=== PATIENT | female | born 1945 ===

== ENCOUNTER 2016-10-07 08:32 | Emergency (ER) | payer MEDICARE ==
--- NOTE | 2016-10-07 09:35 | C.PDOC ---
History Of Present Illness 71 year old female presents to the ED with complaints of abdominal pain for the past 4 days. Patient denies nausea, vomiting, diarrhea, and any other complaints at this time. Time Seen by Provider: 10/07/16 09:09 Chief Complaint (Nursing): Abdominal Pain History Per: Patient History/Exam Limitations: no limitations Onset/Duration Of Symptoms: Days Current Symptoms Are (Timing): Still Present Quality Of Discomfort: "Pain" Associated Symptoms: denies: Fever, Chills, Nausea, Vomiting, Diarrhea Past Medical History Reviewed: Historical Data, Nursing Documentation, Vital Signs Vital Signs: Last Vital Signs Temp 98.5 F 10/07/16 13:19 Pulse 84 10/07/16 13:19 Resp 18 10/07/16 13:19 BP 123/83 10/07/16 13:19 Pulse Ox 100 10/07/16 13:19 - Medical History PMH: Diverticulitis, Gastritis, HTN, Osteoporosis Surgical History: Appendectomy, Cholecystectomy Family History: States: Unknown Family Hx - Social History Hx Tobacco Use: No Hx Alcohol Use: No Hx Substance Use: No - Immunization History Hx Tetanus Toxoid Vaccination: Yes Hx Influenza Vaccination: Yes Hx Pneumococcal Vaccination: No Review Of Systems Constitutional: Negative for: Fever, Chills Respiratory: Negative for: Cough Gastrointestinal: Positive for: Abdominal Pain. Negative for: Nausea, Vomiting , Diarrhea Musculoskeletal: Negative for: Back Pain Physical Exam - Physical Exam Appears: Non-toxic, No Acute Distress Skin: Warm, Dry Eye(s): bilateral: PERRL, EOMI Ear(s): Bilateral: Normal Oral Mucosa: Moist Neck: Supple Cardiovascular: Rhythm Regular, No Murmur Respiratory: No Accessory Muscle Use, No Rales, No Rhonchi, No Stridor, No Wheezing Gastrointestinal/Abdominal: Soft, Tenderness (epigastric and suprapubic tenderness), No Distention, No Guarding, No Rebound Extremity: Normal ROM, No Tenderness Neurological/Psych: Oriented x3 ED Course And Treatment - Laboratory Results Result Diagrams: 10/07/16 10:02 10/07/16 10:02 O2 Sat by Pulse Oximetry: 99 Medical Decision Making Medical Decision Making: r/o colitis, appendicitis - labs imaging pending pt reassesed. abd soft. no ttp. ct neg for acute pathology. labs imaging unremarkable. pt states feels well for d/c. Disposition - Disposition Referrals: Jeb Jacobo MD [Staff Provider] - Disposition: HOME/ ROUTINE Disposition Time: 13:05 Condition: STABLE Additional Instructions: please follow up with your doctor. return to er with worsening symptoms or concenrs. Instructions: Acute Abdominal Pain (ED) - Clinical Impression Clinical Impression: Abdominal pain - Scribe Statement The provider has reviewed the documentation as recorded by the Scribe Bella Nixon All medical record entries made by the Scribe were at my direction and personally dictated by me. I have reviewed the chart and agree that the record accurately reflects my personal performance of the history, physical exam, medical decision making, and the department course for this patient. I have also personally directed, reviewed, and agree with the discharge instructions and disposition.
[2016-10-07 10:06] LABS: BASO # 0.1 K/uL (0.0-0.2); BASO % 1.2 % (0.0-2.0); EOS # 0.1 K/uL (0.0-0.7); EOS % 1.3 % (0.0-4.0); HEMATOCRIT 42.2 % (34.0-47.0); LYMPH # 1.5 K/uL (1.0-4.3); LYMPH % 21.2 % (20.0-40.0); MEAN CELL VOLUME 85.1 fL (81.0-99.0); MEAN CORPUSCULAR HGB CONC 32.9 g/dL (33.0-37.0); MEAN PLATELET VOLUME 7.7 fL (7.2-11.7); MONO # 0.5 K/uL (0.0-0.8); MONO % 6.5 % (0.0-10.0); RED CELL DISTRIBUTION WIDTH 13.4 % (11.5-14.5); WHITE BLOOD COUNT 7.1 K/uL (4.8-10.8)
[2016-10-07 10:14] LABS: CHLORIDE 103 mmol/L (98-107); POTASSIUM 4.4 mmol/L (3.6-5.2); SODIUM 140 mmol/L (132-148)
[2016-10-07 10:15] LABS: INR 1.2
[2016-10-07 10:16] LABS: ALB/GLOB RATIO 1.1 (1.0-2.1); AST/SGOT 27 U/L (14-36); BILIRUBIN,TOTAL 0.5 mg/dL (0.2-1.3); CARBON DIOXIDE 24 mmol/L (22-30); GFR AFRICAN-AMERICAN > 60
[2016-10-07 10:17] LABS: ALKALINE PHOSPHATASE 69 U/L (38-126); ALT/SGPT 29 U/L (9-52); BLOOD UREA NITROGEN 13 mg/dL (7-17); CALCIUM 9.4 mg/dl (8.6-10.4); GLUCOSE,RANDOM 94 mg/dL (65-105); RBC URINE < 1 /hpf (0-3); URINE BILIRUBIN NEGATIVE (NEGATIVE); URINE BLOOD NEGATIVE (NEGATIVE); URINE COLOR Yellow (YELLOW); URINE GLUCOSE (UA) NORMAL (Normal); URINE KETONE NEGATIVE (NEGATIVE); URINE LEUKOCYTE ESTERASE TRACE Leu/uL (Negative); URINE PROTEIN NEGATIVE (NEGATIVE); URINE UROBILINOGEN NORMAL mg/dL (0.2-1.0); WBC URINE 1 /hpf (0-5)
[2016-10-07] MEDS ORDERED: Iodixanol 320 MG/ML 100 ML BOTTLE IV ONE (12:18)
--- NOTE | 2016-10-07 12:56 | CT ---
PROCEDURE: CT Abdomen and Pelvis with contrast HISTORY: abd pain, prior history of colitis COMPARISON: Comparison is made to the previous study dated 07/22/2014 TECHNIQUE: Contrast dose: 100 mL Visipaque 320 Radiation dose: Total exam DLP = 866.73 mGy-cm. FINDINGS: LOWER THORAX: Unremarkable. LIVER: Re- demonstration of pneumobilia more prominent in the left liver lobe. No significant interval change in the liver noted since the previous exam. GALLBLADDER AND BILE DUCTS: Patient status post cholecystectomy. The CBD is mildly dilated contains small amount of air. PANCREAS: Unremarkable. No gross lesion or ductal dilatation. SPLEEN: Unremarkable. ADRENALS: Unremarkable. No mass. KIDNEYS AND URETERS: Unremarkable. No hydronephrosis. No solid mass. VASCULATURE: Unremarkable. No aortic aneurysm. BOWEL: Suboptimal assessment of the bowel without oral contrast. No evidence of bowel obstruction. No definite evidence of enteritis or colitis. Again seen are scattered colonic diverticulosis without evidence of diverticulitis. APPENDIX: No evidence of appendicitis. PERITONEUM: Unremarkable. No free fluid. No free air. LYMPH NODES: Unremarkable. No enlarged lymph nodes. BLADDER: Unremarkable. REPRODUCTIVE: Small amount of fluid seen in the endometrial cavity. BONES: No acute fracture. OTHER FINDINGS: None. IMPRESSION: No CT evidence of acute pathology in the abdomen and pelvis. Re- demonstration of [id number] pneumobilia. Status post cholecystectomy. Suboptimal assessment of the GI system without oral contrast administration. No definite evidence of acute pathology. Colonic diverticulosis without evidence of diverticulitis. Small amount of fluid seen in the endometrial cavity.
[2016-10-07 13:19] VITALS: BP 123/83; PULSE 84; RESP 18; TEMP 98.5
[2016-10-07 14:48] VITALS: O2SAT 99
== END 2016-10-07 13:19 | disposition home or self-care (01) ==
LOC: C.ER 08:32
DX: R10.13 Epigastric pain (principal)
CPT/HCPCS: 74177; 80053; 81001; 83690; 85025; 85610; 85730; 96374; 99285; J1885; Q9967

== ENCOUNTER 2018-11-16 18:00 | Emergency (ER) | payer MEDICARE ==
[2018-11-16 18:01] VITALS: BMI 31.1
[2018-11-16 18:24] VITALS: BP 133/83; PULSE 98; RESP 18; TEMP 99.1; O2SAT 98
--- NOTE | 2018-11-16 19:26 | C.PDOC ---
History Of Present Illness 73 yo female w/PMHx of HTN, diverticular disease, diaphragmatic hernia and cervical disc disease, come in for evaluation of gradual onset of Left sided scalp sensitivity/pain to touch developed since yesterday. Pt describes pain as burning sensation to left scalp area with some tingling. DEnies recent illness, known trauam or injury, denies severe headache, dizziness, neck pain, visual changes, focal deficits, skin changes, denies SOB, CP, SOB, wheezing, cough, abd. pain, N/V, UTI sx,. Ambulatory with stable gait, not in any apparent distress. Time Seen by Provider: 11/16/18 18:54 Chief Complaint (Nursing): Abnormal Skin Integrity History Per: Patient Past Medical History Reviewed: Historical Data, Nursing Documentation, Vital Signs Vital Signs: Last Vital Signs Temp 99.1 F 11/16/18 18:21 Pulse 98 H 11/16/18 18:21 Resp 18 11/16/18 18:21 BP 133/83 11/16/18 18:21 Pulse Ox 98 11/16/18 18:21 Primary Care Provider: Stacy Benson - Medical History PMH: Arthritis, Diverticulitis, Gastritis, HTN, Osteoporosis Surgical History: Appendectomy, Cholecystectomy Family History: States: Unknown Family Hx - Social History Hx Tobacco Use: No Hx Alcohol Use: No Hx Substance Use: No - Immunization History Hx Tetanus Toxoid Vaccination: Yes Hx Influenza Vaccination: Yes Hx Pneumococcal Vaccination: No Review Of Systems Except As Marked, All Systems Reviewed And Found Negative. Constitutional: Negative for: Fever, Chills Eyes: Negative for: Vision Change ENT: Negative for: Ear Discharge, Nose Discharge Cardiovascular: Negative for: Chest Pain, Palpitations Respiratory: Negative for: Shortness of Breath, Wheezing Gastrointestinal: Negative for: Vomiting, Abdominal Pain, Diarrhea Genitourinary: Negative for: Incontinence Musculoskeletal: Negative for: Neck Pain, Back Pain Neurological: Negative for: Weakness, Numbness, Altered Mental Status, Dizziness Physical Exam - Physical Exam Appears: Well, Non-toxic, No Acute Distress Skin: Normal Color, Warm, No Rash Head: Normacephalic, Tenderness (reproducible tenderness over left parietal scalp. No edmea, no erythema, no rash noted.) Eye(s): bilateral: PERRL, EOMI Ear(s): Bilateral: Normal Nose: No Flaring, No Discharge Oral Mucosa: Moist, No Drooling Tongue: No Swelling, No Lesions Lips: No Swelling, No Contusion, No Lesions Throat: No Erythema, No Drooling Neck: Trachea Midline, Supple Cardiovascular: Rhythm Regular Respiratory: No Decreased Breath Sounds, No Accessory Muscle Use, No Stridor, No Wheezing Gastrointestinal/Abdominal: Soft, No Tenderness, No Distention, No Guarding, No Rebound Back: No CVA Tenderness Extremity: Normal ROM, No Tenderness, No Deformity, No Swelling Neurological/Psych: Oriented x3, Normal Speech, Normal Cognition, Normal Motor, Normal Sensation, Normal Reflexes ED Course And Treatment O2 Sat by Pulse Oximetry: 98 (RA) Pulse Ox Interpretation: Normal - CT Scan/US CT-Head Other Rad Studies (CT/US): Read By Radiologist, Radiology Report Reviewed CT/US Interpretation: EXAM: CT Head Without IV contrast. CLINICAL HISTORY: Pain and dizziness. TECHNIQUE: Axial computed tomography images of the head/brain without intravenous contrast. COMPARISON: None provided. FINDINGS: BRAIN: No acute intraparenchymal hemorrhage. No mass lesion. No CT evidence for acute territorial infarct. No midline shift or extra-axial collections. There is mild age-appropriate cerebral and cerebellar atrophy noted. VENTRICLES: No hydrocephalus. ORBITS: The orbits are unremarkable. SINUSES AND MASTOIDS: The paranasal sinuses and mastoid air cells are clear. BONES: No fracture. SOFT TISSUES: Unremarkable. IMPRESSION: 1. No acute intracranial abnormality. 2. Mild age-appropriate diffuse cerebral and cerebellar atrophy. Progress Note: On re-eval, pt reports mod improvement in pain. Pt appears afebrile, hemodynamicaly stable. Ambulatory in ED with stable gait. Tolerate Po well in ED. PulsEOx 985 RA. ENT: no acute findings. neck: SUpple, (-) meningeal sign, (-) JVD, (-) carotid bruits B/L. Lungs: CTA B/L, BS equal B/L. ABd: benign. Neuorlogicaly intact. CT head review and appears normal. Pt has clinical findings c/w Left sided scalp tenderness r/o shingles. Pt advised. ref. to f/u with PMD in 2-3 days for re-eval. return if any worsneing or new changes Disposition Counseled Patient/Family Regarding: Studies Performed, Diagnosis, Need For Followup, Rx Given - Disposition Referrals: Stacy Benson MD [Staff Provider] - Disposition: HOME/ ROUTINE Disposition Time: 20:36 Condition: STABLE Additional Instructions: Take medication as prescribed Encourage fluids follow up with PMD in 2-3 days for re-evaluation. Return to ED if any worsening or new changes Prescriptions: Prednisone [Deltasone] 40 mg PO DAILY #6 tablet traMADol [Ultram] 50 mg PO BID #10 tab valACYclovir [Valtrex] 1 gm PO TID #21 tab Instructions: Headache, Adult, Shingles Forms: [facility] ([place]) - Clinical Impression Clinical Impression: Scalp tenderness, Shingles
--- NOTE | 2018-11-17 06:57 | CT ---
Date of service: 11/16/2018 PROCEDURE: CT HEAD WITHOUT CONTRAST. HISTORY: pain, dizziness COMPARISON: None available. TECHNIQUE: Axial computed tomography images were obtained through the head/brain without intravenous contrast. Radiation dose: Total exam DLP = 1000.66 mGy-cm. This CT exam was performed using one or more of the following dose reduction techniques: Automated exposure control, adjustment of the mA and/or kV according to patient size, and/or use of iterative reconstruction technique. FINDINGS: HEMORRHAGE: No intracranial hemorrhage. BRAIN: No mass effect or edema. Scattered focal lucencies in the subcortical and periventricular white matter suggestive for chronic microvascular ischemic change. Diffuse generalized parenchymal atrophy. VENTRICLES: Unremarkable. No hydrocephalus. CALVARIUM: Unremarkable. PARANASAL SINUSES: Mild mucosal thickening of the ethmoid air cells. MASTOID AIR CELLS: Unremarkable as visualized. No inflammatory changes. OTHER FINDINGS: None. IMPRESSION: No acute intracranial abnormality. Chronic microvascular ischemic change. Diffuse generalized parenchymal atrophy. If symptoms persists, consider correlation with MRI. A preliminary report was generated at 8:33 p.m. on 11/16/[address] Bogdan Bowles from [employer].
== END 2018-11-16 20:45 | disposition home or self-care (01) ==
LOC: C.ER 18:00
DX: R51 Headache (principal); B02.9 Zoster without complications; I10 Essential (primary) hypertension